=== PATIENT | female | born 1935 | race Caucasian/White ===

== ENCOUNTER 2017-01-10 10:03 | Outpatient (CLI) | payer MEDICARE, OTHER ==
[~2017-01-10] VITALS: Ht 165.1 cm; Wt 78.5 kg
[2017-01-10] MEDS ORDERED: TRIAMCINOLONE ACET (KENALOG-40) 40 MG/ML 1 ML VIAL ONE (10:11)
[2017-01-10] MEDS ORDERED: BUPIVACAINE 0.25% 30 ML (SENSORCAINE) VIAL ONE (10:11)
[2017-01-10] MEDS ORDERED: LIDOCAINE 1% INJ 20 ML (XYLOCAINE) VIAL ONE (10:11)
[2017-01-10 10:15] VITALS: BP 144/78
[2017-01-10 11:25] VITALS: BP 138/72
--- NOTE | 2017-01-10 14:11 | Pain Medicine-Procedure ---
Procedure Pre-Op/Post-Op Diagnosis Diagnosis: Sacrococcygeal disorder Indications for Operation Hip pain Attending Surgeon Orlando Procedure Date of Service: Jan 10, 2017 Procedure: Flouroscopic guided right sacroiliac joint injection PROCEDURE IN DETAIL: After obtaining informed consent from the patient, the patient's chart was reviewed. The patient was then brought to the procedure room and placed in the prone position. A time out was performed. The back was prepped with antiseptic solution and under fluoroscopic guidance the patient's sacroiliac joint on the right side was identified. Right sacroiliac joint was identified with fluoroscopic guidance and 2 mL's of 1% lidocaine was used to anesthestize the skin and then one 22-gauge 3.5 inch spinal needle was inserted and advance under flouroscopic guidance until it was in the posterior inferior 1 /3 of the sacroiliac joint on the right side. After negative aspiration, needle was injected with 80 mg of Kenalog along with 2 mL's of 0.25% marcaine. Needle was then flushed with 1% lidocaine and then removed. Band-Aids were applied to all the sites and the patient tolerated the procedure well and was taken to the recovery area in stable condition. Complications None THOMPSON RILEY MD Jan 10, 2017 2:11 pm
== END 2017-01-10 11:27 | disposition home or self-care (01) ==
LOC: CARD 10:03
PROVIDERS: ATTEND Pain Medicine Pain Medicine
DX: M53.3 Sacrococcygeal disorders, not elsewhere classified (principal); Z79.899 Other long term (current) drug therapy
CPT/HCPCS: 27096

== ENCOUNTER 2019-02-09 16:42 | Emergency (ER) | payer MEDICARE, OTHER ==
[~2019-02-09] VITALS: Ht 160 cm; Wt 71.7 kg
--- OUTSIDE RECORDS SUMMARY | 2019-02-09 16:48 | XMS REPORT | Continuity of Care Document ---
Author Organization Unknown Address Unknown Allergies Active Description Code Type Severity Reaction Onset Reported/Identified Relationship to Patient Clinical Status Yes Penicillins [id number] Drug Allergy Moderate HIVES 10/16/2015 Medications There is no data. 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 01/09/2016 THOMPSON RILEY MD Ot M54.5 01/16/2016 THOMPSON RILEY MD Ot M54.6 01/17/2016 THOMPSON RILEY MD Ot M54.6 01/19/2016 THOMPSON RILEY MD Ot M54.6 01/22/2016 THOMPSON RILEY MD Ot M54.6 02/01/2016 THOMPSON RILEY MD Ot M54.5 LOW BACK PAIN 02/06/2016 THOMPSON RILEY MD Ot M54.6 PAIN IN THORACIC SPINE 02/07/2016 THOMPSON RILEY MD Ot M54.5 LOW BACK PAIN 02/14/2016 THOMPSON RILEY MD Ot M54.6 PAIN IN THORACIC SPINE 01/10/2017 THOMPSON RILEY MD Ot M54.5 LOW BACK PAIN 01/10/2017 THOMPSON RILEY MD Ot M54.6 PAIN IN THORACIC SPINE 01/10/2017 THOMPSON RILEY MD Ot M53.3 SACROCOCCYGEAL DISORDERS, NOT ELSEWHERE 01/10/2017 THOMPSON RILEY MD Ot Z79.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 Results There is no data. Encounters ACCT No. Visit Date/Time Discharge Status Pt. Type Provider Facility Loc./Unit Complaint [id number] 01/10/2017 10:03:00 01/10/2017 11:27:00 DIS Outpatient THOMPSON RILEY MD [facility] CARD SACROCOCCYGEAL DISORDER [id number] 01/16/2016 11:01:00 01/16/2016 23:59:59 CLS Outpatient THOMPSON RILEY MD [facility] RAD PAIN IN THORAIC SPINE [id number] 01/09/2016 10:55:00 01/09/2016 23:59:59 CLS Outpatient THOMPSON RILEY MD [facility] RAD LBP [id number] 10/16/2015 13:15:00 10/16/2015 14:14:00 DIS Outpatient THOMPSON RILEY MD [facility] CARD SI JOINT
--- NOTE | 2019-02-09 17:09 | ED Head Injury ---
General Chief Complaint: Laceration Stated Complaint: FELL IN GARAGE GETTING OUT OF CAR Nursing Triage Note: Stubbed her toe in the garage and fell, hitting her R eyebrow on car. States it bled 'quite a bit' but is currently not bleeding. Source: patient Exam Limitations: no limitations History of Present Illness Date Seen by Provider: Feb 09, 2019 Time Seen by Provider: 16:45 Initial Comments Patient is a 84-year-old female who presents with head injury. Patient H she slipped while in the garage, stubbing her toe following and hitting the side of her face and head on the back of her car. Denies loss of consciousness, dizziness, headache, neck pain. Patient is not on anticoagulation therapy. Patient has a 1 cm partial-thickness laceration over the lateral aspect her right orbital rim surrounded by small cephalohematoma. Patient also has dried blood over her right superior parietal scalp with superficial abrasions noted. No neck pain, tenderness. Patient also has superficial abrasion without hematoma over right knee. Patient initially evaluated by EMS but refused her declined transport. Arrives by private vehicle. GCS 15. No other acute symptoms or complaints. Date of last tetanus is unknown. Occurred: just prior to arrival Location: frontal, parietal Method of Injury: fell Loss of Consciousness: no loss of consciousness Associated Systoms: Denies Symptoms Allergies and Home Medications Allergies Coded Allergies: Penicillins (Verified Allergy, Intermediate, HIVES, 10/16/15) Uncoded Allergies: NSAID (Allergy, Unknown, it makes arthritis worse, 02/09/19) Patient Home Medication List Home Medication List Reviewed: Yes Review of Systems Review of Systems Constitutional: see HPI Eyes: See HPI Ears, Nose, Mouth, Throat: see HPI Respiratory: see HPI Cardiovascular: see HPI Genitourinary: see HPI Musculoskeletal: see HPI Skin: see HPI Psychiatric/Neurological: See HPI Hematologic/Lymphatic: See HPI Past Gcwmwmw-Ldbduu-Rutkmw Hx Past Med/Social Hx: Reviewed Nursing Past Med/Soc Hx Patient Social History Alcohol Use: Denies Use Recreational Drug Use: No Smoking Status: Never a Smoker 2nd Hand Smoke Exposure: No Recent Foreign Travel: No Contact w/Someone Who Travel: No Recent Infectious Disease Expo: No Recent Hopitalizations: No Physical Abuse: No Sexual Abuse: No Mistreated: No Fear: No Seasonal Allergies Seasonal Allergies: No Past Medical History Surgeries: Yes Orthopedic Respiratory: No Cardiac: No Neurological: No Genitourinary: No Gastrointestinal: No Musculoskeletal: Yes Osteoporosis, Arthritis Endocrine: Yes Hypothyroidsim HEENT: No Cancer: No Psychosocial: No Integumentary: No Blood Disorders: No Adverse Reaction/Blood Tranf: No Physical Exam Vital Signs Vital Signs - First Documented 02/09/19 16:52 Temp 98.3 Pulse 82 Resp 18 B/P (MAP) 166/56 (92) Pulse Ox 98 Capillary Refill : Less Than 3 Seconds Height, Weight, BMI Height: 5'3.00" Weight: 158lbs. 0.0oz. [id number]; 28.8 BMI Method:Stated General Appearance: WD/WN HEENT: PERRL/EOMI, normal ENT inspection, pharynx normal, other (1 cm partial- thickness laceration over lateral aspect of the orbital rim. Small cephalohematoma present, bleeding controlled. Superficial abrasions right superior parietal scalp.) Neck: non-tender, full range of motion, supple, normal inspection Respiratory: chest non-tender, lungs clear Extremities: other (minor abrasion right knee. No joint pain swelling or tenderness.) Procedures/Interventions Wound Location: Face Other Wound Location Right Lateral orbital rim Wound Length (cm): 1 Wound's Depth, Shape: superficial, linear Wound Explored: clean Betadine Prep?: No Progress Wound cleansed and closed with wound adhesive with good edge approximation. Progress/Results/Core Measures Results/Orders My Orders Orders - MARK MURPHY DO Ct Head Wo (02/09/19 17:01) Dipht,Pertuss(Acell),Tet Adult (Boostrix (02/09/19 17:15) Medications Given in ED Current Medications Medications Dose Ordered Sig/Juanis Route Start Time Stop Time Status Last Admin Dose Admin Diphtheria/ Tetanus/Acell Pertussis 0.5 ml ONCE ONCE IM 02/09/19 17:15 02/09/19 17:16 DC 02/09/19 17:08 0.5 ML Vital Signs/I&O 02/09/19 16:52 Temp 98.3 Pulse 82 Resp 18 B/P (MAP) 166/56 (92) Pulse Ox 98 Blood Pressure Mean: 92 Departure Communication (Admissions) Accidental fall with superficial face and head injury. GCS 15. Orbital laceration repair with wound adhesive. CT scanner unavailable due to technicality. No loss of consciousness, headache. Patient offered outside CT but declined. Tetanus updated. Issue remains asymptomatic. Typical closed head injury and wound care instructions given. Impression Primary Impression: Minor head injury Additional Impressions: Facial laceration Knee abrasion Disposition: HOME, SELF-CARE Condition: Improved Departure-Patient Inst. Referrals: RAYMUNDO SANTIAGO MD (PCP/Family) Primary Care Physician Patient Instructions: Skin Abrasions (DC), Wound Care, Minor Head Injury Add. Discharge Instructions: Please keep wounds clean and dry. Take Tylenol or ibuprofen for pain. Apply Neosporin to posterior scalp and right knee abrasion twice daily. Return to the ED if signs of infection or signs of worsening head injury. All discharge instructions reviewed with patient and/or family. Voiced understanding. MARK MURPHY DO Feb 09, 2019 17:09
[2019-02-09] MEDS ORDERED: TETANUS,DIPTH,PERTUSS P/F (BOOSTRIX) 0.5 ML VIAL IM ONE (17:15)
--- NOTE | 2019-02-09 17:56 | NUR ---
unable to perform CT scan due to machine malfunction.
[2019-02-09 17:58] VITALS: BP 160/95
== END 2019-02-09 18:01 | disposition home or self-care (01) ==
LOC: EDUNIT# 16:42 → ER FS 16:44
DX: S09.90XA Unspecified injury of head, initial encounter (principal); S01.81XA Laceration without foreign body of other part of head, initial encounter; S80.211A Abrasion, right knee, initial encounter; M81.0 Age-related osteoporosis without current pathological fracture; E03.9 Hypothyroidism, unspecified; Z23 Encounter for immunization; Z88.0 Allergy status to penicillin; Z88.6 Allergy status to analgesic agent; V48.4XXA Person boarding or alighting a car injured in noncollision transport accident, initial encounter; Y92.59 Other trade areas as the place of occurrence of the external cause
CPT/HCPCS: 90471; 90715; 99282